=== PATIENT | male | born 2000 | race African-American/Black ===

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

== ENCOUNTER 2022-10-11 12:09 | Emergency (ER) | payer MEDICAID, OTHER ==
[~2022-10-11] VITALS: Ht 190.5 cm; Wt 93.2 kg
[~2022-10-11 12:09] MED LIST changes: +GENT5DRO4 EACHEYE
[2022-10-11 12:22] VITALS: BP 146/84
== END 2022-10-11 13:29 | disposition left against medical advice (07) ==
LOC: ER 12:09
DX: R36.9 Urethral discharge, unspecified (principal); Z53.21 Procedure and treatment not carried out due to patient leaving prior to being seen by health care provider

== ENCOUNTER 2022-10-25 17:08 | Emergency (ER) | payer MEDICAID ==
--- NOTE | 2022-10-25 17:14 | NUR ---
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 Patient educated by labor specialist on the importance of EKG and labs after which the patient still proceeded to leave the ED.
== END 2022-10-25 18:15 | disposition left against medical advice (07) ==
LOC: ER 17:09
DX: R07.89 Other chest pain (principal); Z53.21 Procedure and treatment not carried out due to patient leaving prior to being seen by health care provider

== ENCOUNTER 2023-03-21 05:21 | Emergency (ER) | payer MEDICAID ==
[~2023-03-21 05:21] MED LIST changes: +GENT5DRO22 EACHEYE; -GENT5DRO4 EACHEYE
== END 2023-03-21 06:21 | disposition left against medical advice (07) ==
LOC: ER 05:22
DX: Z11.3 Encounter for screening for infections with a predominantly sexual mode of transmission (principal); Z53.21 Procedure and treatment not carried out due to patient leaving prior to being seen by health care provider

== ENCOUNTER 2023-08-19 09:10 | Emergency (ER) | payer MEDICAID ==
[~2023-08-19] VITALS: Ht 188 cm; Wt 90.6 kg
[2023-08-19 09:16] VITALS: BP 135/86; PULSE 116; RESP 16; TEMP 98.5; O2SAT 100
== END 2023-08-19 09:55 | disposition home or self-care (01) ==
LOC: ER 09:10
DX: Z02.89 Encounter for other administrative examinations (principal); F12.90 Cannabis use, unspecified, uncomplicated; F15.90 Other stimulant use, unspecified, uncomplicated; F11.90 Opioid use, unspecified, uncomplicated; Z79.899 Other long term (current) drug therapy
CPT/HCPCS: 99281